=== PATIENT | male | born 1985 | race African-American/Black ===

== ENCOUNTER 2016-09-18 17:49 | Emergency (ER) | payer SELFPAY ==
[2016-09-18] MEDS ORDERED: Ibuprofen 200 MG TAB ONE (18:24)
== END 2016-09-18 18:40 | disposition home or self-care (01) ==
LOC: NAV ERS 17:49
DX: B34.9 Viral infection, unspecified (principal); J45.909 Unspecified asthma, uncomplicated; F17.210 Nicotine dependence, cigarettes, uncomplicated
CPT/HCPCS: 99283

== ENCOUNTER 2016-11-08 23:42 | Emergency (ER) | payer SELFPAY ==
[2016-11-09] MEDS ORDERED: Penicillin V Potassium 250 MG TAB ONE (00:33)
== END 2016-11-09 00:40 | disposition home or self-care (01) ==
LOC: NAV ERS 23:42
DX: J02.0 Streptococcal pharyngitis (principal); F90.9 Attention-deficit hyperactivity disorder, unspecified type; F17.210 Nicotine dependence, cigarettes, uncomplicated; J45.909 Unspecified asthma, uncomplicated
CPT/HCPCS: 87430; 99283

== ENCOUNTER 2022-01-23 10:09 | Emergency (ER) | payer SELFPAY | END 2022-01-23 11:41 | disposition home or self-care (01) | LOC: NAV ERS 10:09 | DX: U07.1 COVID-19 (principal); J06.9 Acute upper respiratory infection, unspecified; J45.909 Unspecified asthma, uncomplicated; F17.210 Nicotine dependence, cigarettes, uncomplicated | CPT/HCPCS: 87804; 99283; U0003; U0005 ==